=== PATIENT | male | born 1990 | race Caucasian/White ===

== ENCOUNTER 2021-05-29 19:23 | Emergency (ER) | payer OTHER ==
[2021-05-29 19:30] VITALS: BP 128/82; PULSE 99; TEMP 98; BMI 61.9
[2021-05-29] MEDS ORDERED: IBUPROFEN 600 MG TABLET (FP) PO ONE ×2 (20:27)
== END 2021-05-29 21:34 | disposition home or self-care (01) ==
LOC: JERFT 19:23
DX: S60.212A Contusion of left wrist, initial encounter (principal); Y04.8XXA Assault by other bodily force, initial encounter
CPT/HCPCS: 73110-TC-LT-FY; 73130-TC-LT-FY; 99283-25